=== PATIENT | male | born 1975 | race Caucasian/White ===

== ENCOUNTER 2017-04-21 19:34 | Emergency (ER) | payer MEDICAID, OTHER, SELFPAY ==
[~2017-04-21] VITALS: Ht 180.3 cm; Wt 52.9 kg
[2017-04-21 19:36] VITALS: BP 110/73
[2017-04-21] MEDS ORDERED: LIDOCAINE 1%, 20ML ONE (19:50)
[2017-04-21] MEDS ORDERED: DIPH,PERTUSS(ACELL),TET VAC/PF 0.5 ML IM-VACC ONE ×2 (19:51→20:00)
[2017-04-21] MEDS ORDERED: LIDOCAINE 1%, 20ML INFIL ONE (20:00)
[2017-04-21] MEDS ORDERED: OXYcodone/APAP 5/325MG TABLET PO ONE (20:30)
[2017-04-21] MEDS ORDERED: ONDANSETRON ODT 4 MG PO ONE (20:30)
[2017-04-21] MEDS ORDERED: OXYcodone/APAP 5/325MG TABLET ONE (20:58)
[2017-04-21] MEDS ORDERED: ONDANSETRON ODT 4 MG ONE (20:58)
[2017-04-21] MEDS ORDERED: BACITRACIN ZINC OINT 500U/GM, 0.9 GM ONE (22:09)
== END 2017-04-21 22:24 | disposition home or self-care (01) ==
LOC: ED 22:18
DX: S62.660B Nondisplaced fracture of distal phalanx of right index finger, initial encounter for open fracture (principal); W45.8XXA Other foreign body or object entering through skin, initial encounter; Y93.89 Activity, other specified; Y92.009 Unspecified place in unspecified non-institutional (private) residence as the place of occurrence of the external cause; Y99.9 Unspecified external cause status
CPT/HCPCS: 13132; 73130; 90471; 90715; 99285; Q0162

== ENCOUNTER 2017-04-24 20:16 | Emergency (ER) | payer MEDICAID ==
[~2017-04-24] VITALS: Ht 180.3 cm; Wt 87.0 kg
[2017-04-24 20:22] VITALS: BP 125/77
[2017-04-24] MEDS ORDERED: BACITRACIN ZINC OINT 500U/GM, 0.9 GM ONE (21:11)
== END 2017-04-24 21:21 | disposition home or self-care (01) ==
LOC: ED 20:47
DX: S61.210D Laceration without foreign body of right index finger without damage to nail, subsequent encounter (principal)
CPT/HCPCS: 99283

== ENCOUNTER 2017-06-02 14:03 | Emergency (ER) | payer MEDICAID, OTHER ==
[~2017-06-02] VITALS: Ht 180.3 cm; Wt 70.3 kg
[2017-06-02] MEDS ORDERED: SODIUM CHLORIDE 0.9% 1,000 ML IV ONE (14:26)
[2017-06-02] MEDS ORDERED: ONDANSETRON 2MG/ML, 2ML IVPush ONE (14:30)
[2017-06-02] MEDS ORDERED: CEFTAROLINE 600 MG in SODIUM CHLORIDE 0.9% 100 ML IV ONE (14:30)
[2017-06-02] MEDS ORDERED: SODIUM CHLORIDE 0.9% 1,000ML IVBOLUS ONE (14:30)
[2017-06-02] MEDS ORDERED: SODIUM CHLORIDE FLUSH 10ML SYR IVF ONE (14:30)
[2017-06-02] MEDS ORDERED: ONDANSETRON 2MG/ML, 2ML ONE (14:46)
[2017-06-02] MEDS ORDERED: MORPHINE SULFATE 4 MG/ML, 1ML ONE ×2 (14:46→18:01)
[2017-06-02 14:49] LABS: HEMATOCRIT 46.7 % (39.2-51.8); HEMOGLOBIN 15.6 g/dL (13.7-18.0); WHITE BLOOD COUNT 15.9 x10^3/uL (3.4-10)
[2017-06-02] MEDS: MORPHINE SULFATE 4 MG/ML, 1ML IVPush PRN ×2 (14:50→18:13)
[2017-06-02 15:03] LABS: BLOOD UREA NITROGEN 15 mg/dL (7-18)
[2017-06-02 15:07] LABS: IS PT STATUS REG ER OR PRE ER? YES
[2017-06-02 16:09] VITALS: BP 122/78
[2017-06-02] MEDS ORDERED: LIDOCAINE 1%, 20ML ONE ×2 (16:21→17:20)
[2017-06-02] MEDS ORDERED: LIDOCAINE 1%, 20ML SQ ONE (16:30)
== END 2017-06-02 18:28 | disposition home or self-care (01) ==
LOC: ED 15:35
DX: L03.113 Cellulitis of right upper limb (principal); L02.413 Cutaneous abscess of right upper limb; Z88.0 Allergy status to penicillin
CPT/HCPCS: 10061; 36415; 71010; 80048; 82040; 83605; 84484; 85025; 87040; 93005; 96361; 96365; 96375; 99285; J0712; J2405; J7030

== ENCOUNTER 2018-04-12 04:30 | Emergency (ER) | payer MEDICAID ==
[~2018-04-12] VITALS: Ht 180.3 cm; Wt 69.9 kg
[2018-04-12 04:31] VITALS: BP 135/76
[2018-04-12] MEDS ORDERED: AZITHROMYCIN 250 MG TABLET ONE (04:52)
[2018-04-12] MEDS ORDERED: CEFTRIAXONE 1,000 MG ONE (04:52)
[2018-04-12] MEDS ORDERED: CEFTRIAXONE 250 MG IM ONE (05:00)
[2018-04-12] MEDS ORDERED: AZITHROMYCIN 500 MG TABLET PO ONE (05:00)
== END 2018-04-12 05:25 | disposition home or self-care (01) ==
LOC: ED 05:15
DX: A56.01 Chlamydial cystitis and urethritis (principal); A54.01 Gonococcal cystitis and urethritis, unspecified; Z88.0 Allergy status to penicillin
CPT/HCPCS: 87491; 87591; 99283

== ENCOUNTER 2018-11-21 20:57 | Emergency (ER) | payer SELFPAY ==
[~2018-11-21] VITALS: Ht 180.3 cm; Wt 78.0 kg
[2018-11-21 21:01] VITALS: BP 128/77
[2018-11-21] MEDS ORDERED: CEFTRIAXONE 250 MG IM ONE (21:30)
[2018-11-21] MEDS ORDERED: AZITHROMYCIN 250 MG TABLET PO ONE (21:30)
[2018-11-21] MEDS ORDERED: CEFTRIAXONE 250 MG ONE (22:09)
[2018-11-21] MEDS ORDERED: AZITHROMYCIN 500 MG TABLET ONE (22:09)
[2018-11-21 22:20] LABS: CULTURE INDICATED? YES; MICROSCOPIC INDICATED
== END 2018-11-21 23:17 | disposition home or self-care (01) ==
LOC: ED 23:00
DX: A64 Unspecified sexually transmitted disease (principal); N34.2 Other urethritis; F17.210 Nicotine dependence, cigarettes, uncomplicated; F15.10 Other stimulant abuse, uncomplicated; Z72.9 Problem related to lifestyle, unspecified; Z91.14 Patient's other noncompliance with medication regimen; Z75.9 Unspecified problem related to medical facilities and other health care; Z86.19 Personal history of other infectious and parasitic diseases
CPT/HCPCS: 81001; 87086; 87491; 87591; 96372; 99283; J0696

== ENCOUNTER 2021-01-09 12:41 | Emergency (ER) | payer MEDICARE, OTHER ==
[~2021-01-09] VITALS: Ht 180.3 cm; Wt 98.3 kg
[2021-01-09] MEDS ORDERED: KETOROLAC 30 MG/1 ML ONE (13:52)
[2021-01-09] MEDS ORDERED: DIAZEPAM 5 MG TABLET ONE (13:52)
[2021-01-09] MEDS ORDERED: DIAZEPAM 5 MG TABLET PO ONE (14:00)
[2021-01-09] MEDS ORDERED: KETOROLAC 30 MG/1 ML IM ONE (14:00)
[2021-01-09 15:37] VITALS: BP 116/74
--- NOTE | 2021-01-09 15:42 | NUR ---
PT REC'VD DISCHARGE INSTRUCTIONS AND EDUCATION. PT HAD NO FURTHER QUESTIONS. PT DENIED WANTING ANKLE WRAPPED RIGHT NOW HE WAS ANXIOUS TO DEPART. PT PROVIDED ANGELA BANDAGE AND INSTRUCTIONS ON WRAPPING. PT AMBULATED TO HI AREA, STEADY GAIT.
== END 2021-01-09 15:46 | disposition home or self-care (01) ==
LOC: ED 15:40
DX: S39.012A Strain of muscle, fascia and tendon of lower back, initial encounter (principal); S93.412A Sprain of calcaneofibular ligament of left ankle, initial encounter; M51.16 Intervertebral disc disorders with radiculopathy, lumbar region; F17.210 Nicotine dependence, cigarettes, uncomplicated; X58.XXXA Exposure to other specified factors, initial encounter; Y93.89 Activity, other specified; Y92.89 Other specified places as the place of occurrence of the external cause; Y99.8 Other external cause status
CPT/HCPCS: 72110; 73610; 73630; 96372; 99284; J1885

== ENCOUNTER 2021-01-19 11:45 | Emergency (ER) | payer MEDICAID, OTHER ==
[~2021-01-19] VITALS: Ht 180.3 cm; Wt 100.0 kg
[2021-01-19 12:03] VITALS: BP 110/68
--- NOTE | 2021-01-19 12:55 | NUR ---
ERGONOMIC SPECIALIST: PT AMBULATORY TO ROOM AT THIS TIME
[2021-01-19] MEDS ORDERED: DIAZEPAM 5 MG TABLET PO ONE (13:00)
[2021-01-19] MEDS ORDERED: KETOROLAC 30 MG/1 ML IM ONE (13:00)
[2021-01-19] MEDS ORDERED: KETOROLAC 30 MG/1 ML ONE (13:17)
[2021-01-19] MEDS ORDERED: DIAZEPAM 5 MG TABLET ONE (13:17)
== END 2021-01-19 13:43 | disposition home or self-care (01) ==
LOC: ED 13:22
DX: S39.012A Strain of muscle, fascia and tendon of lower back, initial encounter (principal); M51.36 Other intervertebral disc degeneration, lumbar region; M54.16 Radiculopathy, lumbar region; F17.210 Nicotine dependence, cigarettes, uncomplicated; X58.XXXA Exposure to other specified factors, initial encounter; Y93.89 Activity, other specified; Y92.89 Other specified places as the place of occurrence of the external cause; Y99.8 Other external cause status
CPT/HCPCS: 72110; 96372; 99283; 99406; J1885